=== PATIENT | female | born 1935 | race Two or more races ===

== ENCOUNTER 2017-05-05 03:02 | Inpatient (IN) | payer OTHER ==
[~2017-05-05] VITALS: Ht 162.6 cm; Wt 59.0 kg
[~2017-05-05 03:02] MED LIST: AMLOPOW3 PO; ATEN-60 OR; ATEN100T OR; CAPT100T2 OR; ETOD400T OR; HYDR-1421 OR; LORA-205 OR; LORA-655 OR; RALO60TA10 PO; TRAM50TA2 OR
[2017-05-05] MEDS ORDERED: SODIUM CHLORIDE 0.9% 1,000 ML IV ONE (04:09)
[2017-05-05] MEDS ORDERED: HYDROmorphone HCL 2 MG/ML VL IV ONE ×3 (04:15→10:00)
[2017-05-05] MEDS ORDERED: ONDANSETRON HCL 4 MG/2 ML VIAL IV ONE ×2 (04:15→09:00)
[2017-05-05 04:22] LABS: Urine RBC None Seen /hpf (0 - 4)
[2017-05-05 04:30] LABS: Urine Bilirubin Negative (Negative); Urine Blood Negative /uL (Negative); Urine Color Yellow (Yellow); Urine Glucose Normal (Normal); Urine Ketone Negative (Negative); Urine Mucus FEW (None Seen); Urine Nitrite Negative (Negative); Urine Squamous Epithelial Cell FEW /hpf (<5); Urine Urobilinogen Normal (Negative)
[2017-05-05 05:15] LABS: Hematocrit 33.5 % (36.0-46.0); Hemoglobin 10.5 g/dL (12.2-16.2); Mean Corpuscular Hemoglobin 31.4 pg (28.0-32.0); Mean Corpuscular Hgb Conc. 31.3 g/dL (32.0-36.0); Mean Corpuscular Volume 100.2 fL (80.0-100.0); Mean Platelet Volume 6.4 fL (6.9-10.8); Platelet Count (auto) 362 10^3/uL (140-450); Red Cell Distribution Width 15.2 % (11.8-14.3); White Blood Cell 6.7 10^3/uL (4.4-10.8)
[2017-05-05 05:17] LABS: Myelocytes % 0; Promyelocytes % 0; Reactive Lymphocytes 0
[2017-05-05 05:21] LABS: Albumin 1.8 g/dL (3.4-5.0); BUN/Creatinine Ratio 25.6; Magnesium 3.8 mg/dL (1.6-2.6); Potassium 4.5 mmol/L (3.5-5.1)
[2017-05-05 05:24] LABS: Bilirubin, Total 0.6 mg/dL (0.2-1.0)
[2017-05-05] MEDS ORDERED: cefTRIAXone 1GM/50ML D5W 50 ML IV ONE ×2 (05:26→05:45)
[2017-05-05] MEDS ORDERED: metroNIDAZOLE 500MG/100ML 100 ML IV ONE (05:45)
[2017-05-05 06:24] LABS: Anisocytosis Slight; Macrocytosis Slight; Metamyelocytes % 2; Platelet Estimate Adequate
[2017-05-05 07:04] LABS: INR 1.05 (0.9-1.15); Partial Thromboplastin Time 23.3 sec (22.64-33.71); Prothrombin Time 11.4 sec (9.37-12.3)
[2017-05-05] MEDS ORDERED: NOREPINEPHRINE 8 MG/250ML KIT 250 ML IV SCH (08:15)
[2017-05-05] MEDS ORDERED: SODIUM CHLORIDE 0.9% 1,000 ML IV SCH (09:09)
[2017-05-05] MEDS ORDERED: LORazepam 2MG/ML-1ML VIAL IV PRN (09:15)
[2017-05-05] MEDS ORDERED: HYDROmorphone HCL 2 MG/ML VL IV PRN (09:15)
[2017-05-05] MEDS ORDERED: ONDANSETRON HCL 4 MG/2 ML VIAL IV PRN (09:15)
[2017-05-05] MEDS ORDERED: metroNIDAZOLE 500MG/100ML 100 ML IV SCH (12:00)
[2017-05-05 14:13] VITALS: BP 80/58
[2017-05-06] MEDS ORDERED: cefTRIAXone 1GM/50ML D5W 50 ML IV SCH (09:00)
== END 2017-05-05 15:36 | disposition home or self-care (01) | DRG 871 ==
LOC: EDBD 03:02 → ER 03:09 → TELE 03:10
PROVIDERS: ADMIT Internal Medicine; ATTEND Internal Medicine
DX: A41.9 Sepsis, unspecified organism (principal); R65.21 Severe sepsis with septic shock; K63.1 Perforation of intestine (nontraumatic); N17.9 Acute kidney failure, unspecified; I95.9 Hypotension, unspecified; I31.3 Pericardial effusion (noninflammatory); I11.0 Hypertensive heart disease with heart failure; I48.91 Unspecified atrial fibrillation; I50.9 Heart failure, unspecified; R18.8 Other ascites; J98.11 Atelectasis; K66.8 Other specified disorders of peritoneum; D63.8 Anemia in other chronic diseases classified elsewhere; J44.9 Chronic obstructive pulmonary disease, unspecified; I70.0 Atherosclerosis of aorta; K57.30 Diverticulosis of large intestine without perforation or abscess without bleeding; K82.8 Other specified diseases of gallbladder; M41.9 Scoliosis, unspecified; N20.0 Calculus of kidney; E86.0 Dehydration; K80.20 Calculus of gallbladder without cholecystitis without obstruction; Z66 Do not resuscitate; Z96.641 Presence of right artificial hip joint; Z51.5 Encounter for palliative care; F41.9 Anxiety disorder, unspecified; Z82.49 Family history of ischemic heart disease and other diseases of the circulatory system; Z88.5 Allergy status to narcotic agent; Z79.899 Other long term (current) drug therapy; Z90.710 Acquired absence of both cervix and uterus; Z95.0 Presence of cardiac pacemaker
CPT/HCPCS: 36415; 51702; 74176; 76705; 80053; 81001; 82150; 83690; 83735; 85007; 85027; 85610; 85730; 93005; 96365; 96375; 96376; 99291; J0696; J2405; J3490